=== PATIENT | male | born 1950 | race Caucasian/White ===

== ENCOUNTER 2022-07-03 06:56 | Day surgery (SDC) | payer MEDICARE ==
[~2022-07-03 06:56] MED LIST: Bupivacaine 0.5%/EPINEPHrine 1:200,000 50 ML MDV ONE
[2022-07-03] MEDS ORDERED: fentaNYL 250 MCG/5 ML SDV ONE ×2 (07:04→09:57)
[2022-07-03] MEDS ORDERED: Dexamethasone 4 MG/ML SDV ONE (07:05)
[2022-07-03] MEDS ORDERED: Neostigmine Methylsulfate 1 MG/ML 5 ML Syringe ONE (07:05)
[2022-07-03] MEDS ORDERED: Glycopyrrolate 0.2 MG/ML 5 ML MDV ONE (07:05)
[2022-07-03] MEDS ORDERED: Succinylcholine 200 MG/10 ML MDV ONE (07:05)
[2022-07-03] MEDS ORDERED: Ondansetron 4 MG/2 ML SDV ONE (07:05)
[2022-07-03] MEDS ORDERED: Rocuronium 50 MG/5 ML Vial ONE (07:05)
[2022-07-03] MEDS ORDERED: Propofol 200 MG/20 ML SDV ONE (07:05)
[2022-07-03] MEDS ORDERED: Acetaminophen 500 MG Tab PO ONE (07:45)
[2022-07-03] MEDS ORDERED: Lactated Ringers 1,000 ML IV SCH (07:45)
[2022-07-03] MEDS ORDERED: ceFAZolin 2 GM in Premix Bag 1 BAG IV ONE (08:30)
[2022-07-03] MEDS ORDERED: Lactated Ringers 1,000 ML ONE (09:56)
[2022-07-03] MEDS ORDERED: Acetaminophen/HYDROcodone 325-5 MG Tab PO PRN (12:14)
== END 2022-07-03 14:55 | disposition home or self-care (01) ==
LOC: JP.SDS 06:56
PROVIDERS: ATTEND Student in an Organized Health Care Education/Training Program
DX: K40.90 Unilateral inguinal hernia, without obstruction or gangrene, not specified as recurrent (principal); D17.6 Benign lipomatous neoplasm of spermatic cord; Z79.899 Other long term (current) drug therapy; Z87.891 Personal history of nicotine dependence
CPT/HCPCS: 49650; A9270; C1781; J0330; J0690; J1100; J2405; J2704; J2710; J3010; J3490; J7120